=== PATIENT | male | born 1980 ===

== ENCOUNTER 2016-09-26 21:28 | Emergency (ER) | payer SELFPAY ==
[2016-09-26 23:30] LABS: ABSOLUTE NEUTROPHIL COUNT 5.2 K/mm3 (1.8-7.7); BASO % 0.4 % (0.2-1.0); EOS # 0.1 (0.0-0.5); EOS % 1.2 % (0.9-2.9); HEMATOCRIT 44.6 % (32.0-52.0); HEMOGLOBIN 15.1 gm/l (14.0-18.0); IMM NEUT% 0.2 % (0-1); LYMPH # 2.3 (1.0-4.8); LYMPH % 27.9 % (15-45); MEAN CELL VOLUME 89.4 fl (80.0-94.0); MEAN CORPUSCULAR HEMOGLOBIN 30.3 pg (27.0-31.0); MEAN CORPUSCULAR HGB CONC 33.9 g/dl (33.0-37.0); MONO # 0.7 (0.0-0.8); MONO % 8.2 % (4-12); NEUT % 62.1 % (43-75); PLATELET COUNT 249 K/mm3 (130-400); RED CELL DISTRIBUTION WIDTH 12.2 % (11.5-14.5)
[2016-09-26 23:40] LABS: ALB/GLOB RATIO 1.6 (>1.0); ALBUMIN 4.7 gm/dL (3.5-5.7); CALCIUM 9.6 mg/dL (8.6-10.3)
== END 2016-09-27 00:11 | disposition home or self-care (01) ==
LOC: ED 21:28
DX: I10 Essential (primary) hypertension (principal); R00.2 Palpitations; R11.0 Nausea